=== PATIENT | female | born 1960 | race Caucasian/White ===

== ENCOUNTER 2016-10-13 07:30 | Emergency (ER) | payer MEDICARE, OTHER ==
[~2016-10-13] VITALS: Ht 160 cm; Wt 121.0 kg
[~2016-10-13 07:30] MED LIST: ASPI81TA82 PO; CITA20TA4 PO; COUM5TAB PO; DUONI NEB; FISH1000 PO; HYDR50TA15 PO; INSU100V2 SC; LISI-360 PO; LORTA5 PO; METO50TA PO; NORV10TA PO; NYST100024 TOP; ONDA4TAB7 PO; PRED5TAB PO; PROT40TA PO; SIMV20 PO; TEMA15CA PO; VITA500T83 PO; [UNRECOGNIZED DRUG - CODE] SC
[2016-10-13 07:36] VITALS: BP 155/67; PULSE 62; RESP 17; TEMP 97.8; O2SAT 99
--- NOTE | 2016-10-13 08:22 | RADRPT ---
EXAM DATE/TIME: 10/13/2016 08:13 [facility] COMPARISON: CT BRAIN W/O CONTRAST, March 01, 2013, 1:27. INDICATIONS : Trauma to right orbit area and head due to fall. RADIATION DOSE: 39.52 CTDIvol (mGy) MEDICAL HISTORY : Cardiovascular disease. Hypertension. Diabetes mellitus type 2.Storke, COPD SURGICAL HISTORY : None. ENCOUNTER: Initial ACUITY: 1 day PAIN SCALE: 3/10 LOCATION: cranial TECHNIQUE: Multiple contiguous axial images were obtained of the head. Using automated exposure control and adj ustment of the mA and/or kV according to patient size, radiation dose was kept as low as reasonably a chievable to obtain optimal diagnostic quality images. DICOM format image data is available electro nically for review and comparison. FINDINGS: CEREBRUM: The ventricles are normal for age. No evidence of midline shift, mass lesion, hemorrhage or acute in farction. No extra-axial fluid collections are seen. Extensive encephalomalacia is noted within the left frontoparietal lobe consistent with old left MCA infarct. POSTERIOR FOSSA: The cerebellum and brainstem are intact. The 4th ventricle is midline. The cerebellopontine angle i s unremarkable. EXTRACRANIAL: The visualized portion of the orbits is intact. There is a large subgaleal hematoma along the right f rontal skull. SKULL: The calvaria is intact. No evidence of skull fracture. CONCLUSION: 1. No acute infarct, acute hemorrhage, mass effect or extra axial fluid collections. 2. Large right frontal parietal subgaleal hematoma. 3. Extensive encephalomalacia involving left frontal parietal lobe consistent with old left MCA infar ct. Asael Alegre MD on October 13, 2016 at 8:17 Board Certified Radiologist. This report was verified electronically.
[2016-10-13 08:33] LABS: EOSINOPHIL # 0.1 TH/MM3 (0-0.4); EOSINOPHIL % 1.4 % (0.0-4.0); HEMATOCRIT 36.3 % (35.0-46.0); HEMO FLAGS DIFF FINAL; LYMPH % 28.2 % (9.0-44.0); LYMPHOCYTE # 1.4 TH/MM3 (1.0-4.8); MEAN CELL VOLUME 85.3 FL (80.0-100.0); MEAN CORPUSCULAR HEMOGLOBIN 28.5 PG (27.0-34.0); MEAN CORPUSCULAR HGB CONC 33.5 % (32.0-36.0); MONO % 7.7 % (0.0-8.0); NEUT % 61.7 % (16.0-70.0); PLATELET COUNT 257 TH/MM3 (150-450); RED BLOOD COUNT 4.26 MIL/MM3 (4.00-5.30); RED CELL DISTRIBUTION WIDTH 15.9 % (11.6-17.2); WHITE BLOOD COUNT 4.8 TH/MM3 (4.0-11.0)
[2016-10-13 08:43] LABS: POTASSIUM 4.4 MEQ/L (3.5-5.1)
[2016-10-13] MEDS ORDERED: METO50TA PO (08:43)
[2016-10-13] MEDS ORDERED: BUPR150T12 PO (08:43)
[2016-10-13] MEDS ORDERED: POTA8TAB PO (08:43)
[2016-10-13] MEDS ORDERED: HYDR-3801 PO (08:43)
[2016-10-13] MEDS ORDERED: NOVOINJ6 SQ (08:43)
[2016-10-13] MEDS ORDERED: FURO40TA PO (08:43)
[2016-10-13] MEDS ORDERED: PANT40TA3 PO (08:43)
[2016-10-13] MEDS ORDERED: ONDA1TAB17 PO (08:43)
[2016-10-13] MEDS ORDERED: VENTAER INH (08:43)
[2016-10-13] MEDS ORDERED: PLAV75TA29 PO (08:43)
[2016-10-13] MEDS ORDERED: AMLO10TA2 PO (08:43)
[2016-10-13] MEDS ORDERED: ATOR1TAB18 PO (08:43)
[2016-10-13] MEDS ORDERED: ALBU0.08 NEB (08:43)
[2016-10-13] MEDS ORDERED: CELE40TA PO (08:43)
[2016-10-13] MEDS ORDERED: LISI10TA3 PO (08:43)
[2016-10-13] MEDS ORDERED: ASPI81CH3 CHEW (08:43)
[2016-10-13 08:45] LABS: INTERNATIONAL NORMALIZED RATIO 0.9 RATIO; PROTHROMBIN TIME - PATIENT 9.9 SEC (9.8-11.6)
[2016-10-13 08:46] LABS: APTT (PATIENT) 19.7 SEC (24.3-30.1)
--- NOTE | 2016-10-13 09:11 | RADRPT ---
EXAM DATE/TIME: 10/13/2016 08:21 [facility] COMPARISON: No previous studies available for comparison. INDICATIONS : Right elbow pain, fall. MEDICAL HISTORY : None. SURGICAL HISTORY : None. ENCOUNTER: Initial ACUITY: 1 day PAIN SCORE: 7/10 LOCATION: Right posterior elbow FINDINGS: Two view examination of the right elbow demonstrates no soft tissue swelling, joint effusion, fractur e or dislocation. Bony mineralization is normal. CONCLUSION: No acute disease. Darion Henriquez MD on October 13, 2016 at 9:09 Board Certified Radiologist. This report was verified electronically.
--- NOTE | 2016-10-13 09:14 | RADRPT ---
EXAM DATE/TIME: 10/13/2016 08:13 [facility] COMPARISON: No previous studies available for comparison. INDICATIONS : Trauma to head and right side of the face due to fall. RADIATION DOSE: 68.35 CTDIvol (mGy) MEDICAL HISTORY : Diabetes mellitus type 2. Hypertension. Cardiovascular diseaseCOPD, Stroke SURGICAL HISTORY : ENCOUNTER: Initial ACUITY: 1 day PAIN SCORE: 3/10 LOCATION: facial TECHNIQUE: Volumetric scanning of the facial bones was performed. Using automated exposure control and adjustme nt of the mA and/or kV according to patient size, radiation dose was kept as low as reasonably achiev able to obtain optimal diagnostic quality images. DICOM format image data is available electronicall y for review and comparison. FINDINGS: ORBITS: Significant right periorbital and right frontal soft tissue swelling is noted. The orbital and infrao rbital osseous structures are intact. The retroconal structures have a normal configuration. No rad iopaque foreign bodies are seen. NASAL BONE: The nasal bone and maxillary spine are intact ZYGOMATIC ARCHES: Symmetric without evidence of fracture. SINUSES: The maxillary, ethmoid and frontal sinuses are intact. No air-fluid levels seen. NASAL CAVITY: The nasal septum is intact and midline. The lacrimal ducts are intact. SOFT TISSUES: No radiopaque foreign bodies seen. Significant soft tissue swelling in the right periorbital and fron rosy region. INTRACRANIAL: No intracranial air seen. CRIBIFORM PLATE: Grossly intact. CONCLUSION: Right periorbital and frontal soft tissue swelling. No evidence of acute fracture or traumatic injury to the orbital contents. The otherwise intact facial bones. Darion Henriquez MD on October 13, 2016 at 9:09 Board Certified Radiologist. This report was verified electronically.
--- NOTE | 2016-10-13 09:21 | PD ---
HPI Chief Complaint: Fall Time Seen by Provider: 07:42 Travel History International Travel<30 days: No Contact w/Intl Traveler<30days: No Traveled to known affect area: No History of Present Illness HPI 55yo F with PMH of CVA on coumadin presents to the ED from [facility] after falling today. Pt states she dropped her liner roll changer and bend down to pick it up but fell and hit her right forehead as well as scraped her right elbow. Pain is mainly in right forehead. Denies any LOC, visual changes, dizziness, chest pain, sob, n/v, abdominal pain, focal weakness or numbness. PFSH Past Medical History Hx Anticoagulant Therapy: Yes (asa , plavix) Anemia: Yes Arthritis: Yes Asthma: Yes Cancer: No Cardiovascular Problems: Yes High Cholesterol: Yes COPD: No Cerebrovascular Accident: Yes Diabetes: Yes Patient Takes Glucophage: No Endocrine: Yes Gastrointestinal Disorders: Yes (LAP BAND 2011/ NAUSEA) Genitourinary: No Headaches: Yes Hepatitis: No Hiatal Hernia: No Hypertension: Yes Immune Disorder: No Medical other: No Musculoskeletal: Yes (ARTHRITIS; NEUROPATHY LILIANA LEGS/FEET) Neurologic: Yes (TIA X 5/ CONFUSION) Psychiatric: Yes (CLAUSTRAPHOBIA, ) Reproductive: Yes (MENOPAUSAL) Respiratory: Yes (COPD) Thyroid Disease: No Tetanus Vaccination: > 5 Years Influenza Vaccination: Yes PNEUMOCCOCAL Vaccine (Year): 2 ?: Not Menopausal: Yes Past Surgical History Abdominal Surgery: Yes (2x HERNIA REPAIR/LAP BAND SX may 2010) AICD: No Body Medical Devices: LAP BAND- ABDOMINAL Joint Replacement: No Oral Surgery: Yes (T&A AGE 3) Pacemaker: No Other Surgery: Yes (BILAT CAROTID ENDARTERECTOMY 07/28 AND 2009) Social History Alcohol Use: No Tobacco Use: Yes (6 TO 8 CIG.) Substance Use: No Allergies-Medications (Allergen,Severity, Reaction): Coded Allergies: Cephalexin (Verified Allergy, Intermediate, TRUNK HIVES, 10/13/16) Reported Meds & Prescriptions Reported Meds & Active Scripts Active Reported Potassium Chloride ER (Potassium Chloride) 8 Meq Tab 8 Meq PO BID Bupropion Sr 12 HR (Bupropion ER 12 HR (Smoking Deterrent)) 150 Mg Tab 150 Mg PO BID Take 1 tablet daily x 3 days then twice daily thereafter. Celexa (Citalopram Hydrobromide) 40 Mg Tab 40 Mg PO DAILY Ondansetron (Ondansetron HCl) 8 Mg Tab 8 Mg PO TID Aspirin 81 Low Dose (Aspirin) 81 Mg Chew 81 Mg CHEW DAILY Plavix (Clopidogrel Bisulfate) 75 Mg Tab 75 Mg PO DAILY Furosemide 40 Mg Tab 40 Mg PO BID Atorvastatin (Atorvastatin Calcium) 80 Mg Tab 80 Mg PO HS Novolin N U-100 Inj (Insulin NPH (Human) (Isophane) Inj) 100 Unit/Ml Inj 18 SQ BID Lisinopril 10 Mg Tab 10 Mg PO DAILY Amlodipine (Amlodipine Besylate) 10 Mg Tab 10 Mg PO DAILY Hydralazine (Hydralazine HCl) 100 Mg Tab 50 Mg PO BID Take with meals Metoprolol Tartrate 50 Mg Tab 50 Mg PO BID Ventolin Hfa 18 GM Inh (Albuterol Sulfate) 90 Mcg/Act Aer 2 Puff INH Q4H PRN Albuterol Neb (Albuterol Sulfate) 2.5 Mg/3 Ml Neb 2.5 Mg NEB Q4HR NEB PRN Pantoprazole (Pantoprazole Sodium) 40 Mg Tab 40 Mg PO DAILY Review of Systems Except as stated in HPI: all other systems reviewed are Neg Physical Exam Narrative GENERAL: 55yo F in mild distress. SKIN: Focused skin assessment warm/dry. HEAD: +6cm by 6cm hematoma in right forehead with some right upper eyelid edema and ecchymoses. +Small skin tear lateral to right eye, not bleeding. EYES: Pupils equal and round at 3mm bilaterally. EOMI. No scleral icterus. No injection or drainage. ENT: No nasal bleeding or discharge. Mucous membranes pink and moist. NECK: Trachea midline. No JVD. CARDIOVASCULAR: Regular rate and rhythm. No murmur appreciated. RESPIRATORY: No accessory muscle use. Clear to auscultation. Breath sounds equal bilaterally. GASTROINTESTINAL: Abdomen soft, non-tender, nondistended. MUSCULOSKELETAL: +Skin tear in right elbow. No active bleeding. FROM right elbow. No edema. Sensation intact. Distal pulses intact. NEUROLOGICAL: Awake and alert. No obvious cranial nerve deficits. Motor grossly within normal limits. Normal speech. PSYCHIATRIC: Appropriate mood and affect; insight and judgment normal. Data Data Last Documented VS Vital Signs Date Time Temp Pulse Resp B/P Pulse Ox O2 Delivery O2 Flow Rate FiO2 10/13/16 09:48 98.0 60 16 148/[address] Brain W/O Iv Contrast(Rout) (10/13/16 ) Ct Facial Bones W/O Iv Cont (10/13/16 ) Elbow, Limited (Ap&Lat) (10/13/16 ) Complete Blood Count With Diff (10/13/16 07:54) Basic Metabolic Panel (Bmp) (10/13/16 07:54) Act Partial Throm Time (Ptt) (10/13/16 07:54) Prothrombin Time / Inr (Pt) (10/13/16 07:54) Acetaminophen (Tylenol) (10/13/16 09:30) Labs Laboratory Tests Test 10/13/16 08:00 White Blood Count 4.8 TH/MM3 Red Blood Count 4.26 MIL/MM3 Hemoglobin 12.2 GM/DL Hematocrit 36.3 % Mean Corpuscular Volume 85.3 FL Mean Corpuscular Hemoglobin 28.5 PG Mean Corpuscular Hemoglobin 33.5 % Concent Red Cell Distribution Width 15.9 % Platelet Count 257 TH/MM3 Mean Platelet Volume 7.7 FL Neutrophils (%) (Auto) 61.7 % Lymphocytes (%) (Auto) 28.2 % Monocytes (%) (Auto) 7.7 % Eosinophils (%) (Auto) 1.4 % Basophils (%) (Auto) 1.0 % Neutrophils # (Auto) 3.0 TH/MM3 Lymphocytes # (Auto) 1.4 TH/MM3 Monocytes # (Auto) 0.4 TH/MM3 Eosinophils # (Auto) 0.1 TH/MM3 Basophils # (Auto) 0.0 TH/MM3 CBC Comment DIFF FINAL Differential Comment Prothrombin Time 9.9 SEC Prothromb Time International 0.9 RATIO Ratio Activated Partial 19.7 SEC Thromboplast Time Sodium Level 140 MEQ/L Potassium Level 4.4 MEQ/L Chloride Level 107 MEQ/L Carbon Dioxide Level 24.0 MEQ/L Anion Gap 9 MEQ/L Blood Urea Nitrogen 21 MG/DL Creatinine 0.98 MG/DL Estimat Glomerular Filtration 58 ML/MIN Rate Random Glucose 125 MG/DL Calcium Level 8.8 MG/DL [facility] Medical Decision Making Medical Screen Exam Complete: Yes Emergency Medical Condition: Yes Differential Diagnosis Contusion vs. ICH vs. fracture Narrative Course 55yo F with right forehead hematoma and skin tear of right elbow here for evaluation s/p mechanical fall this morning. No LOC. Labs reviewed, no leukocytosis. BMP unremarkable. INR subtherapeutic at 0.9. Xray right elbow showed no acute disease. CT brain showed no acute infarct, acute hemorrhage. Large right frontal parietal subgaleal hematoma. Extensive encephalomalacia involving left frontal parietal lobe consistent with old left MCA infarct. CT MF showed right periorbital and frontal soft tissue swelling. No evidence of acute fracture or traumatic injury to the orbital contents. Intact facial bones. Pt reevaluated at bedside after acetaminophen and still has pain. Will give a percocet. Pt's right eye swelling has gotten worst since my initial exam. Will have pt place ice on it to help reduce swelling and follow up with ophthalmology as needed. Diagnosis Primary Impression: Fall Qualified Code: W19.XXXA - Fall, initial encounter Referrals: Lolis Newman MD Patient Instructions: General Instructions Departure Forms: Tests/Procedures Additional Instructions: Please follow up with your PMD in 3-7 days. Follow up with ophthalmology if any vision changes. Med/Other Pt SpecificInfo: Prescription(s) given Scripts Acetaminophen (Tylenol)325 Mg Jos290 Mg PO Q6H PRN (PAIN SCALE 1 TO 4) #20 TAB Ref 0 Prov:Parisa Watt DO 10/13/16 Disposition: 01 DISCHARGE HOME Condition: Stable Parisa Watt DO Oct 13, 2016 09:21
[2016-10-13] MEDS ORDERED: ACETAMINOPHEN 325 MG TAB PO ONE (09:30)
[2016-10-13 09:48] VITALS: BP 148/81; PULSE 60; RESP 16; TEMP 98; O2SAT 98
[2016-10-13 10:50] VITALS: RESP 16
[2016-10-13] MEDS ORDERED: TYLE325T PO (10:54)
[2016-10-13] MEDS ORDERED: oxyCODONE/ACETAMINOPHEN 5 MG/325 MG TAB PO ONE (11:00)
[2016-10-13] MEDS ORDERED: TETANUS/DIPHTHERIA TOXOID ADULT 0.5 ML VIAL IM ONE (11:00)
[2016-10-13 11:30] VITALS: BP 138/81; TEMP 97.8
== END 2016-10-13 11:30 | disposition home or self-care (01) ==
LOC: NEPC 07:30
DX: S00.83XA Contusion of other part of head, initial encounter (principal); S51.011A Laceration without foreign body of right elbow, initial encounter; D64.9 Anemia, unspecified; I10 Essential (primary) hypertension; J44.9 Chronic obstructive pulmonary disease, unspecified; J45.909 Unspecified asthma, uncomplicated; E11.40 Type 2 diabetes mellitus with diabetic neuropathy, unspecified; W19.XXXA Unspecified fall, initial encounter; Z23 Encounter for immunization
CPT/HCPCS: 70450; 70486; 73070; 80048; 85025; 85610; 85730; 90471; 90714